=== PATIENT | male | born 1955 | race African-American/Black ===

== ENCOUNTER 2022-04-23 00:32 | Inpatient (IN) | payer MEDICARE, MEDICAID ==
[~2022-04-23] VITALS: Ht 172.7 cm; Wt 83.9 kg
[2022-04-23] MEDS ORDERED: LEVETIRACETAM 1000MG PREMIX 100 ML IV ONE (01:30)
[2022-04-23 02:12] LABS: HEMATOCRIT. 42.9 % (42.0-52.0); HEMOGLOBIN. 14.4 g/dL (14.0-18.0); MEAN CORPUSCULAR VOLUME 95.2 fL (80.0-94.0); MEAN PLATELET VOLUME 8.2 fl (7.4-10.4); PLATELET 169 x1000/uL (130-400); RED BLOOD CELL COUNT 4.51 mill/uL (4.7-6.1); RED CELL DISTRIBUTION WIDTH 16.1 % (11.6-14.6)
[2022-04-23 02:35] LABS: CHLORIDE 93 mEq/L (98-107)
[2022-04-23 02:42] LABS: ETHANOL BLOOD < 10 mg/dL
[2022-04-23] MEDS ORDERED: SODIUM CHLORIDE 0.9% 1,000 ML IV NR ×2 (05:30→06:30)
[2022-04-23 05:45] LABS: PLATELET ESTIMATE NORMAL
[2022-04-23] MEDS ORDERED: CEFTRIAXONE 1 G PREMIX 50 ML IV ONE (06:15)
[2022-04-23] MEDS ORDERED: KCL 20MEQ/100ML PREMIX 100 ML IV NR (06:15)
[2022-04-23 12:00] VITALS: BP 116/73
[2022-04-23 12:30] VITALS: BP 127/69
[2022-04-23 16:00] VITALS: BP 143/82
[2022-04-23] MEDS ORDERED: ACETAMINOPHEN 325MG TABLET PO PRN (16:15)
[2022-04-23] MEDS ORDERED: DEXTROSE 50% WATER 50ML SYRINGE IV PRN (16:15)
[2022-04-23] MEDS ORDERED: ONDANSETRON HCL 4MG/2ML INJ IV PRN (16:15)
[2022-04-23] MEDS ORDERED: LORAZEPAM 2MG/ML CPJ IV PRN (16:15)
[2022-04-23] MEDS: BLOOD SUGAR DIAGNOSTIC STRIP TEST SCH ×2 (17:20→20:46)
[2022-04-23] MEDS: INSULIN LISPRO 100 UNITS/ML SUBCUT SCH ×2 (17:50→20:47)
[2022-04-23] MEDS: PIPERACILLIN/TAZOBACTAM 3.375 G in DEXTROSE 5% WATER 50 ML IV SCH (19:00)
[2022-04-23 20:00] VITALS: BP 150/86
[2022-04-23] MEDS: LEVETIRACETAM 500MG TABLET PO SCH (20:39)
[2022-04-24] VITALS: BP 137/79
[2022-04-24 04:00] VITALS: BP 142/76
[2022-04-24] MEDS: PIPERACILLIN/TAZOBACTAM 3.375 G in DEXTROSE 5% WATER 50 ML IV SCH ×2 (06:31→14:03)
[2022-04-24] MEDS: BLOOD SUGAR DIAGNOSTIC STRIP TEST SCH ×3 (07:19→17:09)
[2022-04-24] MEDS: INSULIN LISPRO 100 UNITS/ML SUBCUT SCH ×3 (07:21→17:10)
[2022-04-24 08:00] VITALS: BP_SYST 104; BP_SYST 118; BP_DIAS 60; BP_DIAS 73
[2022-04-24] MEDS: LEVETIRACETAM 500MG TABLET PO SCH (09:10)
[2022-04-24 11:51] VITALS: BP 138/90
[2022-04-24] MEDS ORDERED: KEPP500 MT (13:20)
[2022-04-24 15:09] LABS: HEMATOCRIT. 38.1 % (42.0-52.0); MEAN CORPUSCULAR HEMOGLOBIN 32.9 pg (28.0-32.0); MEAN CORPUSCULAR VOLUME 96.4 fL (80.0-94.0); MEAN PLATELET VOLUME 8.2 fl (7.4-10.4); PLATELET 229 x1000/uL (130-400); RED BLOOD CELL COUNT 3.95 mill/uL (4.7-6.1)
[2022-04-24 15:37] VITALS: BP 134/82
[2022-04-24 16:24] LABS: PLATELET ESTIMATE NORMAL
[2022-04-24] MEDS ORDERED: POTASSIUM CHLORIDE 20MEQ TABLET SR PO NR (17:00)
[2022-04-24] MEDS ORDERED: LEVO250T74 MT (17:14)
[2022-04-24 17:16] LABS: CLARITY URINE CLEAR (CLEAR); COLOR URINE YELLOW (YELLOW); KETONES URINE NEGATIVE (NEGATIVE); LEUKOCYTE ESTERASE URINE NEGATIVE (NEGATIVE); NITRITE URINE NEGATIVE (NEGATIVE); OCCULT BLOOD URINE 1+ (NEGATIVE); PROTEIN URINE 1+ (NEGATIVE); SPECIFIC GRAVITY URINE 1.018 (1.005-1.030)
[2022-04-24 17:26] LABS: *AMPHETAMINES SCREEN URINE NEGATIVE (NEGATIVE); *BARBITURATES SCREEN URINE NEGATIVE (NEGATIVE); *BENZODIAZEPINES SCREEN URINE NEGATIVE (NEGATIVE); *COCAINE SCREEN URINE NEGATIVE (NEGATIVE); CANNABINOID URINE SCREEN NEGATIVE (NEGATIVE); METHADONE URINE SCREEN NEGATIVE (NEGATIVE); OPIATES URINE SCREEN NEGATIVE (NEGATIVE); PHENCYCLIDINE URINE SCREEN NEGATIVE (NEGATIVE)
== END 2022-04-24 17:35 | disposition home or self-care (01) | DRG 871 ==
LOC: EDBD 00:32 → ER 00:32 → 6EST 06:59 → ENRESERV 11:42
PROVIDERS: ADMIT Internal Medicine; ATTEND Internal Medicine
DX: A41.9 Sepsis, unspecified organism (principal); J18.9 Pneumonia, unspecified organism; N17.0 Acute kidney failure with tubular necrosis; E44.0 Moderate protein-calorie malnutrition; E87.1 Hypo-osmolality and hyponatremia; G40.909 Epilepsy, unspecified, not intractable, without status epilepticus; E11.65 Type 2 diabetes mellitus with hyperglycemia; E87.6 Hypokalemia; I10 Essential (primary) hypertension; F17.200 Nicotine dependence, unspecified, uncomplicated; Z68.28 Body mass index [BMI] 28.0-28.9, adult; Z91.14 Patient's other noncompliance with medication regimen; Z86.73 Personal history of transient ischemic attack (TIA), and cerebral infarction without residual deficits
CPT/HCPCS: 36415; 71045; 80048; 80053; 80305; 80320; 81003; 82962; 85025; 99285; J0696; J1815; J1953; J2543; J3480; J7060; G0480